=== PATIENT | male | born 1950 | race Hispanic/Latino ===

== ENCOUNTER 2020-12-27 11:05 | Inpatient (IN) | payer OTHER, SELFPAY ==
[2020-12-27] MEDS ORDERED: Metoprolol Tartrate 5 MG/5 ML VIAL ONE (11:49)
--- NOTE | 2020-12-27 12:04 | RAD ---
PORTABLE CHEST: HISTORY: Pneumonia followup. COMPARISON: 12/26/2020 exam. FINDINGS: Heart size is enlarged. Opacification of the right lung base is again present. This would suggest p robably a pneumonic infiltrate. It could be effusion and atelectasis. Overall appearance is fairly similar to the previous exam. IMPRESSION: Persistent right basilar lung changes. POS: CYNTHIA
[2020-12-27] MEDS ORDERED: Azithromycin 250 MG TAB ONE (12:57)
--- NOTE | 2020-12-27 13:03 | PDOC.HHP ---
Hospitalist HPI Shortness of breath History of Present Illness: The patient is a 70-year-old male with past medical history of atrial fibrillation on amiodarone and Eliquis who was sent to our facility due to worsening shortness of breath. The patient symptoms has been progressing for the past few weeks. His first symptom was lower extremity swelling which started at the ankles and progressed proximally to above his knees. Subsequently he became gradually short of breath on exertion which progressed to the point where his shortness of breath was present whenever he lays down. He also reported waking up from sleep gasping for breath. Denies fever, chills, nausea, vomiting, palpitations, or dizziness. Past History: PMHx: As noted above PSHx: Prostatectomy FHx: Noncontributory for the current presentation Social: Denies smoking, alcohol use, or illicit drug use Hospitalist HPI ROS All other systems reviewed; all pertinent +/- noted in HPI/Subj Hospitalist Exam General Appearance: awake alert ENT: normocephalic atraumatic Neck: supple Heart: RRR, no murmur, no gallops Respiratory: normal chest expansion, normal percussion, rhonchi Gastrointestinal: soft Extremities: no cyanosis, no clubbing, 2+ LE edema Neurological: cranial nerve grossly intact, no new deficit Hospitalist H&P A/P (1) Acute congestive heart failure Code(s): I50.9 - HEART FAILURE, UNSPECIFIED Status: Acute (2) History of atrial fibrillation Code(s): Z86.79 - PERSONAL HISTORY OF OTHER DISEASES OF THE CIRCULATORY SYSTEM Status: Acute (3) Pneumonia Code(s): J18.9 - PNEUMONIA, UNSPECIFIED ORGANISM Status: Acute (4) Acute kidney injury Code(s): N17.9 - ACUTE KIDNEY FAILURE, UNSPECIFIED Status: Acute (5) Hyponatremia Code(s): E87.1 - HYPO-OSMOLALITY AND HYPONATREMIA Status: Acute Plan: The patient has signs of volume overload likely due to congestive heart failure. He does have history of atrial fibrillation which is now on sinus rhythm. He is on amiodarone and Eliquis. He does not carry a diagnosis of CHF so this will be a new event. Place the patient on telemetry floor. 2 g sodium diet. 1500 cc fluid restriction. Strict intake and output. The patient received Lasix prior to arrival and currently he is hypotensive and mildly tachycardic. His rhythm is sinus. I will administer albumin 25 mg every 6 hours for 4 doses. Start Lasix 40 mg IV twice daily tomorrow. Check echocardiogram. If EF is low then we will consider starting beta-blockers and STEPHEN inhibitors. Chest x-ray revealed right lower lobe infiltrate versus atelectasis. The patient does not have any signs of sepsis. I will start azithromycin and ceftriaxone and check procalcitonin level. If the level is low we can likely discontinue antibiotics. Creatinine level is elevated and baseline is unknown. We will assume that this is acute kidney injury given his current hypotensive state. Continue with IV albumin as noted above. Hold further diuresis for today. Hypervolemic hyponatremia is likely related to his CHF and volume overload We will manage the patient with fluid restriction as hyponatremia is mild.
[2020-12-27 13:18] LABS: SARS-CoV-2 NAA Rapid Test Not Detected (NotDetected)
[2020-12-27 16:11] VITALS: BMI 27.5
[2020-12-27] MEDS: cefTRIAXone\\ROCEPHIN 1 GM in Sodium Chloride 0.9% 100 ML IVPB SCH (16:53)
[2020-12-27] MEDS: Sodium Chloride 0.9% 10 ML ONE (16:55)
[2020-12-27] MEDS: Albumin 25% 25 GM/100 ML BOT IVPB SCH ×2 (17:41→23:27)
[2020-12-27] MEDS ORDERED: Carvedilol 3.125 MG TAB PO SCH (21:00)
[2020-12-27] MEDS: Apixaban 5 MG TAB PO SCH (21:10)
[2020-12-27] MEDS: Amiodarone 200 MG TAB PO SCH (21:10)
[2020-12-28 04:37] LABS: Anion Gap 11 mmol/L (10-20); BUN (Urea Nitrogen) 35 mg/dL (8.4-25.7); Calc. Creatinine Clearance 63 mL/min (70-130); Carbon Dioxide 24 mmol/L (23-31); Chloride 99 mmol/L (98-107); Sodium 131 mmol/L (136-145)
[2020-12-28 04:38] LABS: Calcium 7.8 mg/dL (7.8-10.44); Glucose 79 mg/dL (83-110)
[2020-12-28 04:56] LABS: #Lymphocytes 0.6 thou/uL (1.20-3.40); #Monocytes 0.4 thou/uL (0.11-0.59); #Neutrophils 2.9 thou/uL (1.40-6.50); %Basophils 0.4 % (0.0-1.0); %Eosinophils 0.3 % (0.0-10.0); %Lymphocytes 14.5 % (21.0-51.0); %Monocytes 9.1 % (0.0-10.0); %Neutrophils 75.6 % (42.0-75.0); Mean Corpuscular HGB CONC 32.6 g/dL (32.0-36.0); Mean Corpuscular Hemoglobin 28.7 pg (27.0-31.0); Mean Corpuscular Volume 88.2 fL (78.0-98.0); Mean Platelet Volume 10.4 fL (7.4-10.4); Platelet Count 81 thou/uL (130-400); Platelet Morphology Comment Appears Decreased; Red Blood Cell (RBC) Count 4.54 mill/uL (4.70-6.10); White Blood Cell (WBC) Count 3.9 thou/uL (4.8-10.8)
[2020-12-28] MEDS ORDERED: Potassium Chloride 20 MEQ TAB PO SCH (06:00)
[2020-12-28] MEDS: Furosemide 40 MG/4 ML VIAL SLOW IVP SCH ×2 (06:24→13:32)
[2020-12-28] MEDS: Albumin 25% 25 GM/100 ML BOT IVPB SCH ×2 (06:24→12:21)
--- NOTE | 2020-12-28 08:00 | PDOC.HOSPP ---
- Subjective Encounter Date: 12/28/20 Subjective: Patient reports feeling much better compared to yesterday. - Objective Vital Signs & Weight: Vital Signs (12 hours) Temp Pulse Resp BP Pulse Ox 12/28/20 07:40 97.9 F 115 H 20 104/55 L 96 12/28/20 03:55 98.4 F 98 20 102/66 92 L 12/27/20 23:18 106 H 92/63 Weight Weight 175 lb I&O: 12/27/20 12/28/20 12/29/20 06:59 06:59 06:59 Intake Total 320 Output Total 875 Balance -555 Result Diagrams: 12/28/20 04:06 12/28/20 04:06 Additional Labs: Accuchecks 12/27/20 21:53 POC Glucose 92 Hospitalist ROS - Medication Medications: Active Medications Generic Name Dose Route Start Last Admin Trade Name Freq PRN Reason Stop Dose Admin Albumin Human 25 gm 12/27/20 18:00 12/28/20 06:24 Albumin 25% 25 Gm/100 Ml Bot IVPB 12/28/20 12:01 25 gm Q6HR OWEN Administration Amiodarone HCl 200 mg 12/27/20 21:00 12/27/20 21:10 Amiodarone 200 Mg Tab PO 200 mg BID OWEN Administration Apixaban 5 mg 12/27/20 21:00 12/27/20 21:10 Apixaban 5 Mg Tab PO 5 mg BID OWEN Administration Furosemide 40 mg 12/28/20 06:00 12/28/20 06:24 Furosemide 40 Mg/4 Ml Vial SLOW IVP 40 mg 0600,1400 OWEN Administration Ceftriaxone Sodium 1 gm/ 100 mls @ 200 mls/hr 12/27/20 16:00 12/27/20 16:53 Sodium Chloride IVPB 100 mls Q24HR OWEN Administration Potassium Chloride 40 meq 12/28/20 06:00 12/28/20 06:24 Potassium Chloride 20 Meq Tab PO 12/28/20 08:00 40 meq NOW OWEN Administration Hospitalist Exam Vitals: Vital Signs (12 hours) Temp Pulse Resp BP Pulse Ox 12/28/20 07:40 97.9 F 115 H 20 104/55 L 96 12/28/20 03:55 98.4 F 98 20 102/66 92 L 12/27/20 23:18 106 H 92/63 Weight Weight 175 lb Eye: PERRL ENT: normocephalic atraumatic Neck: supple, symmetric Heart: RRR, no murmur Respiratory: rales (At the bases bilaterally.) Gastrointestinal: soft, non-tender, non-distended Extremities: 2+ LE edema Neurological: cranial nerve grossly intact, normal sensation to touch Hosp A/P (1) Acute congestive heart failure Code(s): I50.9 - HEART FAILURE, UNSPECIFIED Status: Acute (2) History of atrial fibrillation Code(s): Z86.79 - PERSONAL HISTORY OF OTHER DISEASES OF THE CIRCULATORY SYSTEM Status: Acute (3) Hyponatremia Code(s): E87.1 - HYPO-OSMOLALITY AND HYPONATREMIA Status: Acute (4) Pneumonia Code(s): J18.9 - PNEUMONIA, UNSPECIFIED ORGANISM Status: Acute - Plan This is a 70-year-old male patient sent for shortness of breath that has been ongoing and progressive for the past few weeks, also swelling of his bilateral lower extremities, also orthopnea. In the emergency room he was diagnosed with new onset congestive heart failure Cardiac--patient is on telemetry and receiving IV Lasix, he did receive IV albumin. He will have an echocardiogram done. Cardiology did see him and he might benefit from starting him on Dobutrex drip as his blood pressure is on the low side, he did tell me that he saw a outside operator in [place] and he did undergo KAZ with cardioversion a week ago, he did also notify me that the swelling of his bilateral lower extremity has been ongoing since beginning of December and since then his blood pressure has been low, and for the past 3 days he has been more short of breath than usual and that is why he came to the ER. Renal--he has elevated creatinine, he was hyponatremic. We will continue to mo nitor his electrolytes on a daily basis. Pulmonary--- he possibly has a pneumonia although he is not presenting as such, but his chest x-ray is indicating that it is a possible diagnosis. For DVT prophylaxis he is on Eliquis. GI----couple days ago he had some nausea but it seems that today he did not have any of that and he is able to eat without any problems.
[2020-12-28] MEDS: Apixaban 5 MG TAB PO SCH ×2 (09:48→20:31)
[2020-12-28] MEDS: Amiodarone 200 MG TAB PO SCH ×2 (09:48→20:31)
[2020-12-28] MEDS: Sodium Chloride 0.9% 10 ML ONE ×4 (09:49→20:32)
[2020-12-28] MEDS ORDERED: Azithromycin 500 MG in Sodium Chloride 0.9% 250 ML 250 ML IVPB SCH (13:00)
[2020-12-28] MEDS: cefTRIAXone\\ROCEPHIN 1 GM in Sodium Chloride 0.9% 100 ML IVPB SCH (16:33)
--- NOTE | 2020-12-28 18:59 | CON ---
DATE OF CONSULTATION: REASON FOR CONSULTATION: Atrial fibrillation and CHF. HISTORY OF PRESENT ILLNESS: Mr. Navarrete is a 70-year-old gentleman who has been seen and evaluated by Cardiology in [place], [place]. He states he recently went KAZ with cardioversion. He is currently on amiodarone therapy in addition to Eliquis. He said he has had increased lower extremity edema and mild shortness of breath noted. He also complained of difficulty with swallowing. No chest pain, pressure noted. PAST MEDICAL HISTORY: As above including congestive heart failure, cholecystectomy. HOME MEDICATIONS: 1. Eliquis. 2. Amiodarone. ALLERGIES: NONE. REVIEW OF SYSTEMS: A 10-point review of systems is reviewed as above, otherwise negative. PHYSICAL EXAMINATION: VITAL SIGNS: Blood pressure 91/60, pulse 113, respirations 20. GENERAL: Patient is a pleasant gentleman who is in no acute distress. The patient appears their stated age. NEUROLOGIC: The patient is alert and oriented x3 with no focal neurologic deficits. HEENT: Sclerae without icterus. Mouth has moist mucous membranes with normal pallor. NECK: No JVD. Carotid upstroke brisk. No bruits bilaterally. LUNGS: Crackles noted bilaterally. BACK: No scoliosis or kyphosis. CARDIAC: Regular rate and rhythm with normal S1 and S2. No S3 or S4 noted. No significant rubs, murmurs, thrills, or gallops noted throughout the precordium. PMI is not displaced. There is no parasternal heave. ABDOMEN: Soft, nontender, nondistended. No peritoneal signs present. No hepatosplenomegaly. No abnormal striae. EXTREMITIES: 2+ femoral and 2+ dorsalis pedis pulses. No cyanosis, clubbing, or edema. SKIN: No gross abnormalities. PERTINENT LABORATORY DATA: Hemoglobin 13.0, hematocrit 40, white blood cell count 3.9. Creatinine 1.2. EKG shows atrial flutter. IMPRESSION: 1. Acute on chronic systolic heart failure. 2. Atrial flutter. 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 His blood pressure appears marginal. His heart rate is also increased in the one teens. I would like to slowly try and diurese Mr. Navarrete, based on his blood pressure it will be difficult. May consider adding low-dose Dobutrex, but would risk increasing his heart rate further. His heart rate has been in the one teens and likely has atypical atrial flutter as etiology, we will consult with EP. We will also review his most recent echo. Job ID: [id number]
[2020-12-29 04:47] LABS: #Lymphocytes 0.6 thou/uL (1.20-3.40); #Monocytes 0.4 thou/uL (0.11-0.59); #Neutrophils 2.7 thou/uL (1.40-6.50); %Basophils 0.2 % (0.0-1.0); %Eosinophils 0.4 % (0.0-10.0); %Lymphocytes 17.2 % (21.0-51.0); %Monocytes 10.9 % (0.0-10.0); %Neutrophils 71.2 % (42.0-75.0); Hemoglobin 12.9 g/dL (14.0-18.0); Mean Corpuscular HGB CONC 32.5 g/dL (32.0-36.0); Mean Corpuscular Hemoglobin 28.8 pg (27.0-31.0); Mean Corpuscular Volume 88.6 fL (78.0-98.0); Mean Platelet Volume 10.4 fL (7.4-10.4); Platelet Count 76 thou/uL (130-400); RBC Distribution Width 13.1 % (11.5-14.5); White Blood Cell (WBC) Count 3.7 thou/uL (4.8-10.8)
[2020-12-29 05:04] LABS: Anion Gap 12 mmol/L (10-20); BUN (Urea Nitrogen) 31 mg/dL (8.4-25.7); Calc. Creatinine Clearance 58 mL/min (70-130); Carbon Dioxide 25 mmol/L (23-31); Chloride 100 mmol/L (98-107); Glucose 89 mg/dL (83-110); Sodium 134 mmol/L (136-145)
[2020-12-29 05:06] LABS: Potassium 2.9 mmol/L (3.5-5.1)
[2020-12-29] MEDS ORDERED: Potassium Chloride 20 MEQ TAB PO SCH ×2 (05:30→10:00)
[2020-12-29] MEDS: Furosemide 40 MG/4 ML VIAL SLOW IVP SCH ×2 (05:46→15:07)
[2020-12-29] MEDS ORDERED: Magnesium 2 GM/50 ML 2 GM in Premix Bag 1 BAG IVPB SCH (07:45)
[2020-12-29] MEDS ORDERED: Electrolyte Replacement Protocol FS PRN (07:45)
[2020-12-29] MEDS: Apixaban 5 MG TAB PO SCH ×2 (08:38→21:25)
[2020-12-29] MEDS: Amiodarone 200 MG TAB PO SCH ×2 (08:38→21:25)
[2020-12-29] MEDS ORDERED: Docusate 100 MG CAP PO SCH (10:15)
[2020-12-29] MEDS ORDERED: Polyethylene Glycol 3350 17 GM Packet PO SCH (10:15)
--- NOTE | 2020-12-29 10:17 | PDOC.HOSPP ---
- Subjective Encounter Date: 12/29/20 (f/u acute on chronic HF) Encounter Time: 10:15 Subjective: Pt was admitted for new onset heart failure. Pt reports he is feeling well - denies any pain, difficulty breathing. He states the swelling is improved. - Objective Vital Signs & Weight: Vital Signs (12 hours) Temp Pulse Resp BP BP Pulse Ox 12/29/20 07:40 97.4 F L 95 16 92/63 96 12/29/20 04:56 94 L 12/29/20 03:44 97.9 F 104 H 20 94/66 94 L 12/29/20 00:19 92/54 L 12/28/20 23:48 104 H 89/50 L Weight Weight 168 lb I&O: 12/28/20 12/29/20 12/30/20 06:59 06:59 06:59 Intake Total 320 1584 Output Total 875 2850 Balance -056 -8221 Result Diagrams: 12/29/20 04:25 12/29/20 04:24 EKG Reviewed by me: Yes (tele - a fib with rates 90-100's) Hospitalist ROS - Medication Medications: Active Medications Generic Name Dose Route Start Last Admin Trade Name Freq PRN Reason Stop Dose Admin Amiodarone HCl 200 mg 12/27/20 21:00 12/29/20 08:38 Amiodarone 200 Mg Tab PO 200 mg BID OWEN Administration Apixaban 5 mg 12/27/20 21:00 12/29/20 08:38 Apixaban 5 Mg Tab PO 5 mg BID OWEN Administration Furosemide 40 mg 12/28/20 06:00 12/29/20 05:46 Furosemide 40 Mg/4 Ml Vial SLOW IVP 40 mg 0600,1400 OWEN Administration Ceftriaxone Sodium 1 gm/ 100 mls @ 200 mls/hr 12/27/20 16:00 12/28/20 16:33 Sodium Chloride IVPB 100 mls Q24HR OWEN Administration Azithromycin 500 mg/ Sodium 250 mls @ 250 mls/hr 12/28/20 13:00 12/28/20 13:30 Chloride IVPB 250 mls 1300 OWEN Administration Potassium Chloride 40 meq 12/29/20 10:00 12/29/20 08:39 Potassium Chloride 20 Meq Tab PO 12/29/20 12:00 40 meq 1000 OWEN Administration Hospitalist Exam Vitals: Vital Signs (12 hours) Temp Pulse Resp BP BP Pulse Ox 12/29/20 07:40 97.4 F L 95 16 92/63 96 12/29/20 04:56 94 L 12/29/20 03:44 97.9 F 104 H 20 94/66 94 L 12/29/20 00:19 92/54 L 12/28/20 23:48 104 H 89/50 L Weight Weight 168 lb General Appearance: NAD Heart: no murmur, irregular Respiratory: CTAB, no wheezes, no rales, no ronchi Gastrointestinal: soft, non-tender, non-distended, normal bowel sounds Extremities: 2+ LE edema Extremities - other findings: bilateral LE and 1+ bilateral UE Psychiatric: normal affect Hosp A/P (1) Hypokalemia Code(s): E87.6 - HYPOKALEMIA Status: Acute (2) Pancytopenia Code(s): D61.818 - OTHER PANCYTOPENIA Status: Acute (3) Acute congestive heart failure Code(s): I50.9 - HEART FAILURE, UNSPECIFIED Status: Acute Qualifiers: Heart failure type: systolic Qualified Code(s): I50.21 - Acute systolic (congestive) heart failure (4) Hyponatremia Code(s): E87.1 - HYPO-OSMOLALITY AND HYPONATREMIA Status: Acute - Plan Acute on Chronic HF - appreciate Cards consult - currently on IV lasix for diuresis, s/p 24 hours of IV albumin - check LFT's to see if another 24 hours is warranted Hyponatremia secondary to HF - improved Hypokalemia - replace via electrolyte protocol pancytopenia - uncertain baseline, may be secondary to antibiotics - d/c antibiotics and monitor Possible pneumonia vs effusion - will d/c antibiotics as the pt is no longer having resp sx, and monitor. constipation - scheduled and prn bowel meds dvt prophy - on eliquis gi prophy - not indicated reviewed plan of care with patietn/ via hospital phlebotomy lab assistant system, no questions or further needs at end of eval. Addendum 15:15 - bp's continue to be on the low side. Will order IV albumin x 24 hours, and change IV lasix to once daily with hold parameters if bp is less than 110/60 Addendum 18:00 - pt with severe cardiomyopathy and estimated EF 10%, with transfer arrangements made by Cardiology to [facility] for higher level of care.
--- NOTE | 2020-12-29 10:48 | PDOC.CPN ---
- Subjective Date: 12/29/20 Time: 09:30 Interval history: Feels much better overnight. Negative output and down 7lbs. Still AFl 80-100bpm. - Review of Systems General: denies: fever/chills, weight/appetite/sleep changes, night sweats, fatigue Respiratory: reports: shortness of breath Cardiovascular: denies: chest pain, palpitation, edema, paroxysmal nocturnal dyspnea, orthopnea Gastrointestinal: denies: nausea, vomiting, diarrhea, constipation, abd pain, GI bleeding Musculoskeletal: denies: pain, tenderness, stiffness, swelling, arthritis/arthralgias Neurological: denies: numbness, syncope, seizure, weakness - Objective Allergies/Adverse Reactions: Allergies Allergy/AdvReac Type Severity Reaction Status Date / Time No Known Allergies Allergy Unverified 12/27/20 15:49 Visit Medications: Current Medications Amiodarone HCl (Amiodarone 200 Mg Tab) 200 mg PO BID [facility] Last Admin: 12/29/20 08:38 Dose: 200 mg Documented by: Apixaban (Apixaban 5 Mg Tab) 5 mg PO BID [facility] Last Admin: 12/29/20 08:38 Dose: 5 mg Documented by: Docusate Sodium (Docusate 100 Mg Cap) 100 mg PO BID [facility] Docusate Sodium (Docusate 100 Mg Cap) 100 mg PO NOW [facility] Stop: 12/29/20 12:15 Furosemide (Furosemide 40 Mg/4 Ml Vial) 40 mg SLOW IVP 0600,1400 [facility] Last Admin: 12/29/20 05:46 Dose: 40 mg Documented by: Ceftriaxone Sodium 1 gm/ (Sodium Chloride) 100 mls @ 200 mls/hr IVPB Q24HR [facility] Last Admin: 12/28/20 16:33 Dose: 100 mls Documented by: Azithromycin 500 mg/ Sodium (Chloride) 250 mls @ 250 mls/hr IVPB 1300 [facility] Last Admin: 12/28/20 13:30 Dose: 250 mls Documented by: Lactulose (Lactulose 20 Gm/30 Ml Udcup) 20 gm PO DAILYPRN PRN PRN Reason: Constipation Miscellaneous Medication (Electrolyte Replacement Protocol) 0 each FS ASDIR PRN; Protocol PRN Reason: ELECTROLYTE REPLACEMENT Polyethylene Glycol (Polyethylene Glycol 3350 17 Gm Packet) 17 gm PO DAILY [facility] Polyethylene Glycol (Polyethylene Glycol 3350 17 Gm Packet) 17 gm PO NOW [facility] Stop: 12/29/20 12:15 Potassium Chloride (Potassium Chloride 20 Meq Tab) 40 meq PO 1000 OWEN Stop: 12/29/20 12:00 Last Admin: 12/29/20 08:39 Dose: 40 meq Documented by: Sodium Chloride (Flush - Normal Saline 10 Ml Syringe) 10 ml IVF Q12HR OWEN Sodium Chloride (Flush - Normal Saline 10 Ml Syringe) 10 ml IVF PRN PRN PRN Reason: Saline Flush Throat Lozenges (Cepastat Lozenges 1 Samuel) 1 samuel PO Q2H PRN PRN Reason: Sore Throat Vital Signs & Weight: Vital Signs Temp Pulse Resp BP BP Pulse Ox 12/29/20 07:40 97.4 F L 95 16 92/63 96 12/29/20 04:56 94 L 12/29/20 03:44 97.9 F 104 H 20 94/66 94 L 12/29/20 00:19 92/54 L 12/28/20 23:48 104 H 89/50 L Weight 168 lb - Physical Exam General: alert & oriented x3, appears well, no apparent distress HEENT: mucus membranes moist Neck: supple neck Cardiac: regular rate and rhythm Lungs: bibasilar rales Neuro: grossly intact Abdomen: soft Extremities: no clubbing, no edema Skin: clear - Labs Result Diagrams: 12/29/20 04:25 12/29/20 04:24 - Assessment/Plan Assessment/Plan: 1. Acute CHF - probable systolic, but waiting on ECHO 2. Recurrent AF/AFl 3. Hypotension Continue current meds. ECHO pending. On ACT. ? repeat cardioversion. RG: Pt seen and evaluated given combination of tachycardia and hypotension with EF of 10%, pt will need to be transferred to a higher level of care in a facility with LVAD capabilites. [facility] has accepted the pt
[2020-12-29 11:17] LABS: ALT (SGPT) 109 U/L (8-55); AST (SGOT) 72 U/L (5-34); Albumin 3.3 g/dL (3.4-4.8); Alkaline Phosphatase 62 U/L (40-110); Bilirubin, Direct 0.6 mg/dL (0.1-0.3); Bilirubin, Total 2.4 mg/dL (0.2-1.2); Protein, Total 5.1 g/dL (5.8-8.1)
[2020-12-29] MEDS: Albumin 25% 25 GM/100 ML BOT IVPB SCH ×2 (16:23→21:24)
[2020-12-29] MEDS: Cepastat Lozenges 1 LOZ PO PRN ×2 (21:24→21:32)
[2020-12-29] MEDS: Docusate 100 MG CAP PO SCH (21:25)
[2020-12-30] MEDS: Albumin 25% 25 GM/100 ML BOT IVPB SCH ×2 (03:35→09:43)
[2020-12-30 04:45] LABS: #Lymphocytes 0.7 thou/uL (1.20-3.40); #Monocytes 0.5 thou/uL (0.11-0.59); #Neutrophils 3.9 thou/uL (1.40-6.50); %Basophils 0.3 % (0.0-1.0); %Eosinophils 0.2 % (0.0-10.0); %Lymphocytes 13.4 % (21.0-51.0); %Neutrophils 76.1 % (42.0-75.0); Hemoglobin 13.5 g/dL (14.0-18.0); Mean Corpuscular HGB CONC 32.6 g/dL (32.0-36.0); Mean Corpuscular Hemoglobin 28.9 pg (27.0-31.0); Mean Corpuscular Volume 88.8 fL (78.0-98.0); Mean Platelet Volume 10.8 fL (7.4-10.4); Platelet Count 87 thou/uL (130-400); RBC Distribution Width 13.3 % (11.5-14.5); Red Blood Cell (RBC) Count 4.67 mill/uL (4.70-6.10); White Blood Cell (WBC) Count 5.1 thou/uL (4.8-10.8)
[2020-12-30 05:18] LABS: Anion Gap 17 mmol/L (10-20); BUN (Urea Nitrogen) 34 mg/dL (8.4-25.7); Calc. Creatinine Clearance 52 mL/min (70-130); Calcium 8.6 mg/dL (7.8-10.44); Carbon Dioxide 21 mmol/L (23-31); Chloride 99 mmol/L (98-107); Glucose 129 mg/dL (83-110); Potassium 3.7 mmol/L (3.5-5.1); Sodium 133 mmol/L (136-145)
[2020-12-30] MEDS ORDERED: Polyethylene Glycol 3350 17 GM Packet PO SCH (09:00)
[2020-12-30] MEDS ORDERED: Furosemide 40 MG/4 ML VIAL SLOW IVP SCH (09:00)
--- NOTE | 2020-12-30 09:00 | PDOC.HOSPP ---
- Subjective Encounter Date: 12/30/20 (f/u heart failure) Encounter Time: 08:58 Subjective: Pt denies any complaints. States he had an episode of shortness of breath yesterday that resolved. The swelling hasnt changed. He denies any n/v/abd pain. - Objective Vital Signs & Weight: Vital Signs (12 hours) Pulse Resp BP BP Pulse Ox 12/30/20 04:00 93 L 12/30/20 03:28 112 H 22 H 95/60 93 L 12/29/20 23:52 111 H 104/70 Weight Weight 167 lb 6 oz I&O: 12/29/20 12/30/20 12/31/20 06:59 06:59 06:59 Intake Total 1584 540 Output Total 2850 2550 Balance -1265 Result Diagrams: 12/30/20 04:18 12/30/20 04:18 EKG Reviewed by me: Yes (tele - a flutter 100's starting around 11 yesterday) Hospitalist ROS - Medication Medications: Active Medications Generic Name Dose Route Start Last Admin Trade Name Freq PRN Reason Stop Dose Admin Albumin Human 25 gm 12/29/20 16:00 12/30/20 03:35 Albumin 25% 25 Gm/100 Ml Bot IVPB 12/30/20 10:01 25 gm Q6H OWEN Administration Amiodarone HCl 200 mg 12/27/20 21:00 12/29/20 21:25 Amiodarone 200 Mg Tab PO 200 mg BID OWEN Administration Apixaban 5 mg 12/27/20 21:00 12/29/20 21:25 Apixaban 5 Mg Tab PO 5 mg BID OWEN Administration Docusate Sodium 100 mg 12/29/20 21:00 12/29/20 21:25 Docusate 100 Mg Cap PO 100 mg BID OWEN Administration Sodium Chloride 10 ml 12/29/20 21:00 12/29/20 21:25 Flush - Normal Saline 10 Ml Syringe IVF 10 ml Q12HR OWEN Administration Throat Lozenges 1 samuel 12/28/20 20:42 12/29/20 21:32 Cepastat Lozenges 1 Samuel PO 1 samuel Q2H PRN Administration Sore Throat Hospitalist Exam Vitals: Vital Signs (12 hours) Pulse Resp BP BP Pulse Ox 12/30/20 04:00 93 L 12/30/20 03:28 112 H 22 H 95/60 93 L 12/29/20 23:52 111 H 104/70 Weight Weight 167 lb 6 oz Heart: RRR, no murmur, III/IV Respiratory: no wheezes, no rales, no ronchi Gastrointestinal: soft, non-tender, non-distended, normal bowel sounds Extremities - other findings: unchanged - 3+ bilateral LE Psychiatric: normal affect Hosp A/P (1) Hypokalemia Code(s): E87.6 - HYPOKALEMIA Status: Resolved (2) Pancytopenia Code(s): D61.818 - OTHER PANCYTOPENIA Status: Acute (3) Acute congestive heart failure Code(s): I50.9 - HEART FAILURE, UNSPECIFIED Status: Acute Qualifiers: Heart failure type: systolic Qualified Code(s): I50.21 - Acute systolic (congestive) heart failure (4) Hyponatremia Code(s): E87.1 - HYPO-OSMOLALITY AND HYPONATREMIA Status: Acute (5) Cardiomyopathy Code(s): I42.9 - CARDIOMYOPATHY, UNSPECIFIED Status: Acute (6) Atrial flutter Code(s): I48.92 - UNSPECIFIED ATRIAL FLUTTER Status: Acute - Plan Acute on Chronic HF with severe cardiomyopathy and EF 10-15% with plan for transfer to [facility] for consideration of LVAD - appreciate Cards consult - currently on IV lasix for diuresis if bp can tolerate it with albumin Hyponatremia secondary to HF - improved Hypokalemia - resolved - continue electrolyte protocol pancytopenia - normal WBC count today - uncertain baseline, may be secondary to antibiotics - d/c antibiotics yesterday Elevated lft's - likely secondary to HF Possible pneumonia vs effusion - abx d/c yesterday as this presentation is c/w cardiac etiology constipation - scheduled and prn bowel meds dvt prophy - on eliquis gi prophy - not indicated reviewed plan of care with patient via hospital investigations director system, no questions or further needs at end of eval. Pt is agreeable to transfer, which will hopefully occur today
[2020-12-30] MEDS: Apixaban 5 MG TAB PO SCH (09:42)
[2020-12-30] MEDS: Docusate 100 MG CAP PO SCH (09:42)
[2020-12-30] MEDS: Amiodarone 200 MG TAB PO SCH (09:42)
[2020-12-30 12:27] VITALS: BP 104/65; TEMP 98.3
--- NOTE | 2020-12-31 06:01 | DIS ---
DATE OF ADMISSION: 12/27/2020 DATE OF DISCHARGE: 12/30/2020 CONSULTANTS: Dr. Serrato of Cardiology. MEDICATIONS: Reconciled at discharge and consistent with the ones here. 1. Amiodarone 200 mg b.i.d. 2. Eliquis 5 mg b.i.d. 3. Cepastat lozenges every 2 hours as needed. 4. Colace 100 mg b.i.d. 5. Lasix IV 40 mg once daily if blood pressure is greater than 110/60. 6. Lactulose 20 g daily as needed. 7. MiraLAX 17 g daily. DISCHARGE DISPOSITION: Inpatient transfer to [facility] for advanced cardiac care. FINAL DIAGNOSES: 1. Acute decompensated systolic heart failure with very low ejection fraction estimated at 10% to 15%. 2. Hypotension associated with above. 3. Lower extremity edema. 4. Pancytopenia of unknown etiology. 5. Hypokalemia. 6. Hypervolemic hyponatremia. 7. Constipation. 8. Possible pneumonia. 9. Acute kidney injury versus chronic kidney disease. 10. Elevated LFTs. HISTORY OF PRESENT ILLNESS: Mr. Navarrete is a 70-year-old male who presented to the emergency room with a complaint of worsening shortness of breath. He also complained of lower extremity edema consistent with heart failure. As there was a possible pneumonia, the patient was started on azithromycin and ceftriaxone on December 27. He is no longer having any respiratory symptoms, and has a normal white blood cell count, and a negative procalcitonin. For these reasons, the antibiotics were discontinued. HOSPITAL COURSE: The patient was diuresed with IV Lasix in conjunction with IV albumin due to lower blood pressures. He was evaluated by Cardiology and found to have a severe cardiomyopathy of 10% to 15%, severe mitral regurgitation, severely dilated left atrium. Given the lower blood pressures, the atrial fibrillation with rates in the 90s to 100s, and the need for advanced cardiac care, arrangements were made for transfer to [facility]. Hyponatremia had improved with diuresis. Hypokalemia. He has received potassium replacement. This will need to be ongoing. He also has mildly elevated liver function tests, which is likely from decompensated heart failure. His renal function has remained stable. We do not have any baseline creatinine level for him. PHYSICAL EXAMINATION: Please see the note on the chart. ACUTE FINDINGS AND TEST RESULTS: Liver function tests on 12/29, T bilirubin 2.4, D bilirubin 0.6, AST 72, ALT 109, total protein 5.1, albumin 3.3. Renal panel 134, 2.9, 100, 25, 31, 1.3, 189, magnesium is 2. Procalcitonin 0.22. COVID test was negative. CBC today is 3.7, 12.9, 39.8, 76. Echocardiogram performed today, EF 10% to 15%, severely dilated left atrium, severe mitral regurgitation, moderate aortic regurgitation and moderate tricuspid regurgitation. Chest x-ray performed on December 27 shows persistent right basilar lung changes when compared to chest x-ray on 12/26. DIET: Heart healthy, fluid restricted to 1500 mL per day. ACTIVITY: As tolerated. CODE STATUS: Full. Job ID: [id number] MTDD
== END 2020-12-30 13:35 | disposition short-term general hospital (02) | DRG 291 ==
LOC: ERS 11:05 → 2NO 12:48
PROVIDERS: ADMIT Internal Medicine; ATTEND Family Medicine
DX: I50.21 Acute systolic (congestive) heart failure (principal); J18.9 Pneumonia, unspecified organism; N17.9 Acute kidney failure, unspecified; E87.1 Hypo-osmolality and hyponatremia; I48.92 Unspecified atrial flutter; D61.818 Other pancytopenia; I42.9 Cardiomyopathy, unspecified; E87.6 Hypokalemia; K59.00 Constipation, unspecified; I95.9 Hypotension, unspecified; N18.9 Chronic kidney disease, unspecified; Z20.822 Contact with and (suspected) exposure to COVID-19
CPT/HCPCS: 0240U; 36415; 36416; 71045; 80048; 80076; 83735; 84145; 85025; 93005; 93306; 96374; J0456; J0696; J1940; J3475; J3490; J7050; P9047